=== PATIENT | female | born 1985 | race Caucasian/White ===

== ENCOUNTER 2017-05-24 08:27 | Emergency (ER) | payer SELFPAY ==
--- NOTE | 2017-05-24 09:39 | ER Document Report ---
ED GI/ - General Chief Complaint: Upper Abdominal Pain Stated Complaint: LIVER PAIN Time Seen by Provider: 05/24/17 09:38 Mode of Arrival: Ambulatory Information source: Patient Notes: Patient is a 31-year-old female who presents to the ER today for right upper quadrant pain 3-4 days. Patient has a history of hepatitis B and C, on methadone. She admits to sweating, chills, fever of 101F yesterday, nausea but no vomiting. She still has her gallbladder. She is not on any medication for her hepatitis. TRAVEL OUTSIDE OF THE [place] IN LAST 30 DAYS: No - Related Data Allergies/Adverse Reactions: No Known Allergies Allergy (Verified 05/24/17 08:32) Home Medications: Current Home Medications Gabapentin [Gabapentin] 300 mg PO QID 05/24/17 [History] Methadone HCl 123 mg PO DAILY 05/24/17 [History] Past Medical History - General Information source: Patient - Social History Smoking Status: Unknown if Ever Smoked Family History: Reviewed & Not Pertinent Patient has suicidal ideation: No Patient has homicidal ideation: No Renal/ Medical History: Denies: Hx Peritoneal Dialysis Past Surgical History: Reports: Hx Orthopedic Surgery - lumbar fusion - Immunizations Hx Diphtheria, Pertussis, Tetanus Vaccination: No Review of Systems - Review of Systems Constitutional: See HPI EENT: No symptoms reported Cardiovascular: No symptoms reported Respiratory: No symptoms reported Gastrointestinal: See HPI Genitourinary: No symptoms reported Female Genitourinary: No symptoms reported Musculoskeletal: No symptoms reported Skin: No symptoms reported Hematologic/Lymphatic: No symptoms reported Neurological/Psychological: No symptoms reported Physical Exam - Vital signs Vitals: Temp Pulse Resp BP Pulse Ox 99.5 F 93 16 124/92 H 97 05/24/17 08:32 05/24/17 08:32 05/24/17 08:32 05/24/17 08:32 05/24/17 08:32 - Notes Notes: PHYSICAL EXAMINATION: GENERAL: appears uncomfortable, but in no acute distress. HEAD: Atraumatic, normocephalic. EYES: Pupils equal round and reactive to light, extraocular movements intact, sclera anicteric, conjunctiva are normal. NECK: Normal range of motion, supple without lymphadenopathy LUNGS: CTAB and equal. No wheezes rales or rhonchi. HEART: Regular rate and rhythm without murmurs ABDOMEN: Soft,mild RUQ tenderness. No guarding, no rebound BACK: no vertebral tenderness, normal ROM GI/: no CVA tenderness EXTREMITIES: Normal range of motion, no pitting edema. No cyanosis. NEUROLOGICAL: right arm twitching constantly at shoulder,Cranial nerves grossly intact. Normal sensory/motor exams. PSYCH: Normal mood, normal affect. SKIN: Warm, Dry, normal turgor, no rashes or lesions noted Course - Re-evaluation Re-evalutation: 05/24/17 15:26 On my exam patient has very minimal right upper quadrant tenderness, but she contributes this to being on methadone. Dr. Solo, surgeon here evaluated patient due to her liver enzymes being 600s and RUQ ultrasound reveals enlarged liver with fluid surrounding with thickened gallbladder leal, suggesting cholecystitis, he advises transfer as we do not have GI information coordinator. surgeon at [facility] declined patient as he states this "sounds surgical, there's no reason for GI." Dr. Mendoza, surgeon information coordinator at [facility] states that pt needs to be admitted to medicine with GI information coordinator as this could be her hepatitis B and C causing liver pain, possible cirrhosis. 05/24/17 16:37 Dr. Mora, hospitalist at [facility] accepts pt but transfer line states it will likely be 24 hours before a bed comes available. When I tell the patient this, she opts to sign out AMA and have her family drive her to [place] to go to [facility] herself. I did advise that she likely has a surgical emergency and should stay here until bed assignment, she refuses stating "What am I going to do, just sit here? I want to go where they can help me." Mother and grandmother are very concerned and are taking her straight to [facility], I do believe they'll go straight there, they are all very worried. I did print labs and ultrasound for her to take with her. She got IV rocephin and pain medication before leaving. 05/25/17 16:15 . - Vital Signs Vital signs: Temp Pulse Resp BP Pulse Ox 99.5 F 83 18 119/86 H 99 05/24/17 08:32 05/24/17 17:03 05/24/17 17:03 05/24/17 17:03 05/24/17 17:03 - Laboratory Result Diagrams: 05/24/17 11:21 05/24/17 12:06 Laboratory results interpreted by me: 05/24/17 05/24/17 05/24/17 11:21 12:06 12:25 WBC 2.2 L Plt Count 134 L Absolute Neutrophils 1.6 L Absolute Lymphocytes 0.4 L Total Bilirubin 2.1 H Direct Bilirubin 1.9 H AST 601 H ALT 636 H Alkaline Phosphatase 310 H Urine Protein 100 H Urine Blood SMALL H Urine Bilirubin SMALL H Urine Urobilinogen 4.0 H Ur Leukocyte Esterase TRACE H Discharge - Discharge Clinical Impression: Elevated liver enzymes, Thickening of wall of gallbladder, History of hepatitis Condition: Stable Disposition: AGAINST MEDICAL ADVICE
--- NOTE | 2017-05-24 11:04 | RADIOLOGY REPORT (SQ) ---
EXAM DESCRIPTION: U/S ABDOMEN LIMITED W/O DOP COMPLETED DATE/TIME: 05/24/2017 10:38 am REASON FOR STUDY: ruq pain COMPARISON: None. TECHNIQUE: Dynamic and static grayscale images acquired of the liver and recorded on PACS. Addition al selected color Doppler and spectral images recorded. Selected velocities recorded. LIMITATIONS: None. FINDINGS: LIVER: Enlarged liver, 19 cm in diameter. No focal mass or ascites identified. LIVER VASCULATURE: The hepatic veins and portal veins are patent with normal directional flow. The I VC is patent. GALLBLADDER: Thickened wall of the gallbladder with trace pericholecystic fluid concerning for cholec ystitis. No obvious stones. Consider nuclear medicine/ hepatobiliary scanning further evaluation. INTRAHEPATIC DUCTS AND COMMON DUCT: Bile ducts do not appear dilated. ASCITES: None. OTHER: No other significant finding. IMPRESSION: Large liver. No focal mass or ascites Thickened wall of the gallbladder with trace pericholecystic fluid concerning for cholecystitis. No obvious stones. Correlate clinically. Consider nuclear medicine/ hepatobiliary scanning further chelsie luation. TECHNICAL DOCUMENTATION: JOB ID: [id number]
[2017-05-24 11:38] LABS: ABSOLUTE LYMPHOCYTES (AUTO) 0.4 10^3/uL (0.5-4.7); ABSOLUTE MONOCYTES (AUTO) 0.2 10^3/uL (0.1-1.4); ABSOLUTE NEUT (AUTO) 1.6 10^3/uL (1.7-8.2); BASOPHILS % (AUTO) 0.3 % (0-2); EOSINOPHILS % (AUTO) 0.4 % (0-6); HEMATOCRIT 37.3 % (36.0-47.0); HEMOGLOBIN 12.8 g/dL (12.0-15.5); HGB HCT DIFFERENCE 1.1; LYMPHOCYTES % (AUTO) 19.2 % (13-45); MEAN CORPUSCULAR HEMOGLOBIN 30.8 pg (27.0-33.4); MEAN CORPUSCULAR HGB CONC 34.2 g/dL (32.0-36.0); MEAN CORPUSCULAR VOLUME 90 fl (80-97); MONOCYTES % (AUTO) 7.5 % (3-13); RED BLOOD COUNT 4.15 10^6/uL (3.72-5.28); RED CELL DISTRIBUTION WIDTH 12.3 % (11.5-14.0); SEGMENTED NEUTROPHILS % (AUTO) 72.6 % (42-78); WHITE BLOOD COUNT 2.2 10^3/uL (4.0-10.5)
[2017-05-24 12:39] LABS: ALANINE AMINOTRANSFERASE 636 U/L (9-52); ALBUMIN 3.6 g/dL (3.5-5.0); ALKALINE PHOSPHATASE 310 U/L (38-126); ANION GAP 11 (5-19); ASPARTATE AMINO TRANSFERASE 601 U/L (14-36); BILIRUBIN,DIRECT 1.9 mg/dL (0.0-0.4); BILIRUBIN,TOTAL 2.1 mg/dL (0.2-1.3); BLOOD UREA NITROGEN 9 mg/dL (7-20); CALCIUM 9.2 mg/dL (8.4-10.2); CARBON DIOXIDE 24 mmol/L (22-30); CHLORIDE 106 mmol/L (98-107); CREATININE RESULT 0.59 mg/dL (0.52-1.25); GLUCOSE 91 mg/dL (75-110); LIPASE 32.3 U/L (23-300); SODIUM 141.3 mmol/L (137-145); TOTAL PROTEIN 6.6 g/dL (6.3-8.2)
[2017-05-24 13:09] LABS: APPEARANCE,URINE SLIGHTLY-CLOUDY; BILIRUBIN,URINE SMALL (NEGATIVE); GLUCOSE, URINE NEGATIVE (NEGATIVE); KETONES,URINE NEGATIVE (NEGATIVE); LEUKOCYTE ESTERASE,URINE TRACE (NEGATIVE); NITRITE,URINE NEGATIVE (NEGATIVE); PROTEIN,URINE 100 mg/dL (NEGATIVE); URINE SPECIFIC GRAVITY 1.017
--- NOTE | 2017-05-24 14:07 | CONSULTATION REPORT E ---
Consultation Report NAME: ANDREW DUNBAR : 1985 AGE: 31Y DATE: 05/24/2017 TO: LYLE CAVAZOS M.D. FROM: Celestine BRITO, Requesting Physician REASON FOR CONSULTATION: Patient with possible acute cholecystitis, acalculous. HISTORY OF PRESENT ILLNESS: This is a 31-year-old female on maintenance methadone medication for drug addiction and a history of hepatitis B and C, noted to complain of severe right upper quadrant pains last night and went to the ED today. She claims she had treatment for hepatitis C about 6 or 10 years ago but may have reinfected herself after treatment since she went back to IV drug abuse until 6 years ago when she has been on maintenance of methadone. PAST HISTORY: History of surgery for scoliosis at age 14. She was in the hospital about 10 years ago for hepatitis B and she said she was treated for it and also for hepatitis C. However, she went back to IV drug abuse until 6 years ago when she stopped and since then has been on a methadone program. ALLERGIES: No known. SOCIAL HISTORY: Smokes about half a pack a day. Denies alcohol use. Denies IV drug abuse for the past 6 years and has been on methadone medications since 6 years ago. FAMILY HISTORY: Noncontributory. REVIEW OF SYSTEMS: As in HPI. She looks a little anxious. Complaining of pain in the right upper quadrant. Denies any diarrhea, constipation or dysuria. No cough. No chest pains. Rest of the systems reviewed and unremarkable. PHYSICAL EXAMINATION: VITAL SIGNS: Temperature 99.5, heart rate 93 per minute, respiratory rate 16 per minute, blood pressure 124/92, and O2 sat 97% on room air. GENERAL: Well-developed, well-nourished 31-year-old female, alert and oriented, no apparent acute distress. NECK: Supple. No thyromegaly. LUNGS: Clear. HEART: Regular sinus rhythm. ABDOMEN: Soft with tenderness in the right upper quadrant. EXTREMITIES: No edema. DIAGNOSTICS: Her labs showed her white count is 2.2 with platelets of 134. Total bilirubin is 2.1, direct bilirubin 1.9, AST 601 and ALT of 636 with alkaline phos of 310. She had an ultrasound of the gallbladder which showed thickened gallbladder wall with trace pericholecystic fluid concerning for acute cholecystitis. She has a large liver. No gallstones noted. IMPRESSION: 1. Acalculous cholecystitis. 2. Possible hepatitis C with liver dysfunction versus common bile duct obstruction, which is unlikely since her bile ducts appear to be not enlarged. PLAN: Since we do not have any GI who could manage her hepatitis or diagnose her hepatitis, it is best to transfer her to a facility where they have a culvert installer. She said the last time she was in the hospital was in [facility] in [place]. DICTATING PHYSICIAN: LYLE CAVAZOS M.D. [id number] PHY#: [id number] ID: [id number] JOB#: [id number] ACCT: [id number] cc:LYLE CAVAZOS M.D. >
[2017-05-24] MEDS ORDERED: NORMAL SALINE 1000 ML 1,000 ML IV ONE (15:08)
[2017-05-24] MEDS ORDERED: CEFTRIAXONE 1 GM/D5W RTU 50 ML IV ONE (15:08)
[2017-05-24] MEDS ORDERED: MORPHINE SULFATE 10 MG/ML INJ IV ONE (16:22)
[2017-05-24 17:05] VITALS: BP 119/86
== END 2017-05-24 17:03 | disposition left against medical advice (07) ==
LOC: ER 08:27
DX: K81.9 Cholecystitis, unspecified (principal); R10.10 Upper abdominal pain, unspecified; R10.11 Right upper quadrant pain; R74.8 Abnormal levels of other serum enzymes; K82.8 Other specified diseases of gallbladder; Z86.19 Personal history of other infectious and parasitic diseases; Z98.1 Arthrodesis status
CPT/HCPCS: 99285; 96375; 96365; 36415; 83690; 84703; 85025; 80053; 81001; 76705; J2270; J0696

== ENCOUNTER 2017-09-03 09:38 | Emergency (ER) | payer SELFPAY ==
[2017-09-03] MEDS ORDERED: MUPIROCIN 2% OINTMENT 22 GM TOP ONE (10:21)
--- NOTE | 2017-09-03 10:22 | ER Document Report ---
ED ENT - General Chief Complaint: Sore Throat Stated Complaint: SORE THROAT Time Seen by Provider: 09/03/17 10:04 Mode of Arrival: Ambulatory Information source: Patient Notes: 32-year-old female presents to ED for complaint of sore throat swollen tonsils enlarged lymph nodes in sores to her face. Patient has a history of cirrhosis of the liver and hepatitis. She complains of skin blemishes. She is awake alert oriented speaks in full sentences respirations unlabored. She is able to walk with a steady gait. TRAVEL OUTSIDE OF THE [place] IN LAST 30 DAYS: No - HPI Patient complains to provider of: Nose problem, Throat problem Onset: Last week Onset/Duration: Gradual Quality of pain: Achy, Sharp Severity: Moderate Pain Level: 4 Context: Recent Illness Location of pain: Ears, Nose, Throat Associated symptoms: Runny nose, Sinus pain, Sinus drainage, Sore throat, Swollen glands, Other - Small skin blemishes to the face. With enlarged lymph nodes. Throat is normal with some postnasal drip patient has some symptoms of upper respiratory infection Similar symptoms previously: No Recently seen / treated by doctor: No - Related Data Allergies/Adverse Reactions: No Known Allergies Allergy (Verified 09/03/17 09:42) Past Medical History - General Information source: Patient - Social History Smoking Status: Current Every Day Smoker Cigarette use (# per day): Yes - Half pack per day Chew tobacco use (# tins/day): No Smoking Education Provided: Yes - Less than 2 minutes Frequency of alcohol use: None Drug Abuse: None Family History: Reviewed & Not Pertinent Patient has suicidal ideation: No Patient has homicidal ideation: No - Past Medical History Cardiac Medical History: Reports: None Pulmonary Medical History: Reports: None EENT Medical History: Reports: None Neurological Medical History: Reports: None Endocrine Medical History: Reports: None Renal/ Medical History: Reports: None Malignancy Medical History: Reports: None GI Medical History: Reports: Hx Cirrhosis, Hx Hepatitis Musculoskeltal Medical History: Reports Hx Musculoskeletal Deformity Skin Medical History: Reports None Psychiatric Medical History: Reports: None Traumatic Medical History: Reports: None Infectious Medical History: Reports: None Past Surgical History: Reports: Hx Orthopedic Surgery - lumbar fusion - Immunizations Hx Diphtheria, Pertussis, Tetanus Vaccination: No Review of Systems - Review of Systems Constitutional: No symptoms reported EENT: Nose congestion, Nose discharge, Sinus pressure, Sinus discharge, Throat pain Cardiovascular: No symptoms reported Respiratory: No symptoms reported Gastrointestinal: No symptoms reported Genitourinary: No symptoms reported Female Genitourinary: No symptoms reported Musculoskeletal: No symptoms reported Skin: Lesions - To face where patient has been pension the skin causing small lesions Hematologic/Lymphatic: No symptoms reported Neurological/Psychological: No symptoms reported -: Yes All other systems reviewed and negative Physical Exam - Vital signs Vitals: Temp Pulse Resp BP Pulse Ox 98.4 F 69 18 141/77 H 96 09/03/17 09:40 09/03/17 09:40 09/03/17 09:40 09/03/17 09:40 09/03/17 09:40 Interpretation: Normal - General General appearance: Appears well, Alert - HEENT Head: Atraumatic, Open wounds - The patient has been continued areas of her face because a small lesions Eyes: Normal Pupils: PERRL Ears: Normal External canal: Normal Tympanic membrane: Normal Sinus: Normal Nasal: Swelling, Clear rhinorrhea Mouth/Lips: Normal Mucous membranes: Normal Pharynx: Post nasal drainage. No: Erythema, Exudate Neck: Anterior cervical chain - Respiratory Respiratory status: No respiratory distress Chest status: Nontender Breath sounds: Normal Chest palpation: Normal - Cardiovascular Rhythm: Regular Heart sounds: Normal auscultation Murmur: No - Abdominal Inspection: Normal Distension: No distension Bowel sounds: Normal Tenderness: Nontender Organomegaly: No organomegaly - Back Back: Normal, Nontender - Extremities General upper extremity: Normal inspection, Nontender, Normal color, Normal ROM , Normal temperature General lower extremity: Normal inspection, Nontender, Normal color, Normal ROM , Normal temperature, Normal weight bearing. No: Snow's sign - Neurological Neuro grossly intact: Yes Cognition: Normal Orientation: AAOx4 [place] Coma Scale Eye Opening: Spontaneous [place] Coma Scale Verbal: Oriented [place] Coma Scale Motor: Obeys Commands [place] Coma Scale Total: 15 Speech: Normal Motor strength normal: LUE, RUE, LLE, RLE Sensory: Normal - Psychological Associated symptoms: Normal affect, Normal mood - Skin Skin Temperature: Warm Skin Moisture: Dry Skin Color: Normal Course - Vital Signs Vital signs: Temp Pulse Resp BP Pulse Ox 97.8 F 64 18 125/74 97 09/03/17 10:59 09/03/17 10:59 09/03/17 09:40 09/03/17 10:59 09/03/17 10:59 Discharge - Discharge Clinical Impression: URI (upper respiratory infection) Qualifiers: URI type: unspecified URI Qualified Code(s): J06.9 - Acute upper respiratory infection, unspecified Condition: Stable Disposition: HOME, SELF-CARE Instructions: Family Physicians / Practices Additional Instructions: UPPER RESPIRATORY ILLNESS: You have a viral infection of the respiratory passages -- a "cold." This common infection causes nasal congestion, drainage, and often sore throat and cough. It is highly contagious. The disease usually lasts about 10 to 14 days. There is no "cure" for the viral infection -- it must run its course. If there is a complication, such as bacterial infection in the nose, sinuses, middle ear, or bronchial tubes, antibiotics may be required. The antibiotics won't affect the virus. Drink plenty of fluids. A humidifier may help. An expectorant medication or decongestant may make you more comfortable. Use acetaminophen or ibuprofen for fever or aches. See the doctor if fever persists over two days, if there is any significant worsening of your symptoms, or if you simply fail to improve as expected. VIRAL SYNDROME: The physician has diagnosed a likely viral infection. Viruses not only cause "colds," but can cause many different symptoms including generalized aching, fever, headache, cough, diarrhea, nausea, vomiting, and fatigue. The treatment, for the most part, is simply relief of symptoms. This means that antibiotics are usually not given. Rest, fluids, pain medications and, occasionally, medication for the specific symptoms that are most bothersome will be prescribed. Use good handwashing to avoid passing the virus to others. Shared toys should be cleaned with disinfectant. Clean the toilets, sinks, and counter surfaces in bathrooms. Launder clothing in hot water. Contact the physician if you develop any new or unusual symptoms such as severe headache, stiff neck, high fever, chest pain, productive cough, or shortness of breath. You should be rechecked if you don't see marked improvement within seven to 10 days. SORE THROAT: Sore throats may be caused by viruses, bacteria, or fungi. Most are due to a virus, and must get better on their own. Bacterial sore throats, particularly those due to "strep," need treatment with antibiotics. If an antibiotic is prescribed, be sure to take the medication for a full 10 days. Failure to take the antibiotic can result in complications such as rheumatic fever. Sometimes, an injection of antibiotics is given instead of pills or liquid. This single "shot" is equal in effectiveness to the oral medication. To relieve symptoms, take acetaminophen for pain. Sip clear liquids frequently, or eat popsicles or ice chips. Anesthetic sprays or lozenges may help. Make sure the air in the room is not too dry. Avoid using decongestants or antihistamines. Call the doctor if there is no improvement in two days, or if you have difficulty breathing, increasing throat pain, high fever, rash, or frequent vomiting. USE OF ACETAMINOPHEN (Tylenol): Acetaminophen may be taken for pain relief or fever control. It's much safer than aspirin, offering a wider range of "safe" dosages. It is safe during . Some brand names are Tylenol, Panadol, Datril, Anacin 3, Tempra, and Liquiprin. Acetaminophen can be repeated every four hours. The following are maximum recommended dosages: WEIGHT Dose Drops Elixir Chewable( 80mg) (LBS.) drprs=droppers tsp=teaspoon 6 40 mg 0.4 ml (1/2) 6-11 80 mg 0.8 ml (full) tsp 1 tab 12-16 120 mg 1 1/2 drprs 3/4 tsp 1 1/2 tabs 17-23 160 mg 2 drprs 1 tsp 2 tabs 24-30 240 mg 3 drprs 1 1/2 tsp 3 tabs 30-35 320 mg 2 tsp 4 tabs 36-41 360 mg 2 1/4 tsp 4 1/2 tabs 42-47 400 mg 2 1/2 tsp 5 tabs 48-53 480 mg 3 tsp 6 tabs 54-59 520 mg 3 1/4 tsp 6 1/2 tabs 60-64 560 mg 3 1/2 tsp 7 tabs 65-70 600 mg 3 3/4 tsp 7 1/2 tabs 71-76 640 mg 4 tsp 8 tabs 77-82 720 mg 4 1/2 tsp 9 tabs 83-88 800 mg 5 tsp 10 tabs >89 pounds or adults 650 mg to 900 mg Acetaminophen can be repeated every four hours. Maximum dose not to exceed 4000 mg a day. These maximum recommended dosages are slightly higher than the dosages written on the product container, but these dosages are very safe and below the toxic dosage for acetaminophen. CELLULITIS: You have an infection of your skin and underlying soft tissues called cellulitis. This is due to bacteria, which can enter through any break in the skin, or even through an irritated hair follicle. Untreated, cellulitis will usually worsen. Antibiotics are required. Usually, warm packs or warm soaks, and elevation of the infected area are recommended. You should start getting better within 24 to 36 hours. Most infections respond quickly to the right medication. Follow-up care is important, however, to check for abscess (boil) formation, unsuspected foreign body, or resistant infection. If you develop fever, chills, or if the area of infection is becoming rapidly more swollen or painful, call the doctor at once. Soap Cleansing Gently wash the wound daily using a mild soap (like Ivory, Phisoderm, Neutrogena). Use warm water, rubbing gently until all debris, ooze, and crusting have been washed from the wound. Allow to dry briefly (about 10 minutes) after cleaning. Repeat this cleansing at least three times a day for the first two days and then once or twice a day. Bactroban Ointment Bactroban is very effective against the germs that cause infection within the skin. It's useful for impetigo and other superficial infections. Deeper infections require antibiotics by mouth or by shot. Apply the medicine three times a day for one week, or longer if your doctor has advised it. Stop the medicine and call your doctor if you develop large blisters, severe itching, increasing pain, swelling, fever, or spreading redness. SMOKING: If you smoke, you should stop smoking. The tar and chemicals in cigarette smoke are harmful. Smoking has been shown to cause: emphysema chronic bronchitis lung cancer mouth and throat cancer stomach and pancreas cancer premature aging defects In addition, smoking increases ear and lung infections in children of smokers. FOLLOW-UP CARE: If you have been referred to a physician for follow-up care, call the physician s office for an appointment as you were instructed or within the next two days. If you experience worsening or a significant change in your symptoms, notify the physician immediately or return to the Emergency Department at any time for re-evaluation. Forms: Elevated Blood Pressure, Smoking Cessation Education
[2017-09-03 11:08] VITALS: BP 125/74
== END 2017-09-03 11:06 | disposition home or self-care (01) ==
LOC: ER 09:38
DX: J06.9 Acute upper respiratory infection, unspecified (principal); F17.210 Nicotine dependence, cigarettes, uncomplicated; Z98.1 Arthrodesis status; Z86.19 Personal history of other infectious and parasitic diseases
CPT/HCPCS: 99282; J3490